=== PATIENT | female | born 1990 | race African-American/Black ===

== ENCOUNTER 2018-09-10 07:36 | Emergency (ER) | payer OTHER ==
[~2018-09-10] VITALS: Ht 154.9 cm; Wt 81.7 kg
[~2018-09-10 07:36] MED LIST: CIPROFLOXACIN500 M1 PO; PYRIDIUM200 MG PO
[2018-09-10 08:04] LABS: URINE BILIRUBIN NEGATIVE (Negative); URINE BLOOD 2+ (Negative); URINE CLARITY SL CLOUDY; URINE COLOR YELLOW; URINE GLUCOSE-RANDOM* NEGATIVE (Negative); URINE KETONES 1+ (Negative); URINE LEUKOCYTES-REFLEX NEGATIVE (Negative); URINE NITRITE-REFLEX NEGATIVE (Negative); URINE PROTEIN (DIPSTICK) 1+ (Negative); URINE SPECIFIC GRAVITY > 1.030 (1.005-1.035); URINE UROBILINOGEN 0.2 E.U./dl (0.2-1.0)
[2018-09-10 08:11] LABS: MUCUS 0-3 Light strn/LPF (None Seen); SQUAMOUS >10 Many /LPF (0-3)
[2018-09-10 08:12] LABS: BACTERIA-REFLEX >30 Many /HPF (None Seen)
[2018-09-10 08:17] LABS: CASTS None Seen /LPF (None Seen); URINE WBC-REFLEX 0-5 Rare /HPF (0-5)
[2018-09-10 08:18] LABS: CRYSTALS None Seen /LPF (None Seen); YEAST-REFLEX Present (None Seen)
[2018-09-10] MEDS ORDERED: DIFLUCAN150 M1 PO (08:28)
[2018-09-10 08:44] VITALS: BP 107/74
== END 2018-09-10 08:45 | disposition home or self-care (01) ==
LOC: ER 07:36
PROVIDERS: Student in an Organized Health Care Education/Training Program
DX: B37.9 Candidiasis, unspecified (principal)